=== PATIENT | female | born 1945 | race Caucasian/White ===

== ENCOUNTER → 2024-07-01 | Outpatient (CLI) | payer MEDICARE ==
--- NOTE | 2024-07-01 12:50 | HMCIMG ---
SHOULDER COMP 2+VWS LT REASON: OTHER SPRAIN OF LEFT SHOULDER, INITIAL ENCOUNTER TECHNIQUE: 2 views were obtained. FINDINGS: There is no evidence of fracture or dislocation. There is no joint effusion. The soft tissues appear unremarkable. There is no evidence of a radiopaque foreign body. Surgical hardware is noted in the lower cervical spine. IMPRESSION: No acute findings.
--- NOTE | 2024-07-01 12:51 | HMCIMG ---
PELVIS 1-2VWS REASON: SI JOINT DYSFUNCTION TECHNIQUE: Single AP view was obtained. FINDINGS: Bones appear normal. There are no visible fractures. Joint spaces are unremarkable. This includes normal appearance of the sacroiliac joints, there is no evidence of effusion or erosion. Soft tissues appear normal as well. IMPRESSION: 1. Negative AP pelvis.
--- NOTE | 2024-07-01 12:51 | HMCIMG ---
EXAM: LUMBAR SPINE 2-3VWS REASON: LOW BACK PAIN. COMPARISON: None. TECHNIQUE: 3 views of the lumbar spine were obtained. FINDINGS: There is marked interspace narrowing at L5-S1, there are also marked degenerative changes of facets at L4-5 and L5-S1. There is normal vertebral body alignment. There are no compression fractures. Surrounding soft tissues appear unremarkable. Soft tissues appear unremarkable. + IMPRESSION: 1. 1. Moderate lumbar degenerative changes, no acute finding.
== END | disposition home or self-care (01) ==
LOC: RAH 11:35
PROVIDERS: ATTEND Internal Medicine
DX: S43.492A Other sprain of left shoulder joint, initial encounter (principal); M53.3 Sacrococcygeal disorders, not elsewhere classified; R26.81 Unsteadiness on feet; M54.50 Low back pain, unspecified; X58.XXXA Exposure to other specified factors, initial encounter; Y93.89 Activity, other specified; Y92.89 Other specified places as the place of occurrence of the external cause; Y99.8 Other external cause status
CPT/HCPCS: 72100; 72170; 73030